=== PATIENT | male | born 1990 | race Caucasian/White ===

== ENCOUNTER 2022-11-28 17:41 | Outpatient (CLI) | payer OTHER ==
--- NOTE | 2022-11-29 01:56 | MRI Report ---
PROCEDURE: LUMBAR SPINE WO INDICATIONS: ANKYLOSING SPONDYLITIS TECHNIQUE: Noncontrast sagittal T1 spin echo and T2 fast echo, sagittal STIR, axial T1 and T2 fast spin echo thr ough the lumbar spine. In cases with scoliosis, additional coronal T2 fast spin echo may be performe d. COMPARISON: None. FINDINGS: Image quality: Motion artifact is noted. Alignment and Curvature: There is normal bony alignment. Bone Marrow: Marrow is of normal overall signal. No acute vertebral body compression fractures. Spinal Cord: Conus medullaris terminates at the T12-L1 level. Visualized cord demonstrates normal s ignal and size. Paraspinous Soft Tissues: No paravertebral masses. T12-L1: Normal in appearance. L1-L2: Normal in appearance. L2-L3: Normal in appearance. L3-L4: Normal in appearance. L4-L5: The disc height is well-preserved. There is loss of disc signal seen. Mild disc bulge is see n, with a central disc protrusion. Note is made of an annular fissure posteriorly. Mild facet hypert rophy is seen. Moderate bilateral neural foraminal narrowing is seen. Minimal central canal narrowin g is seen. L5-S1: Moderate loss of disc height and signal are seen. Moderate disc bulge is seen, with a cent ral disc extrusion, with inferior migration of the disc material. Moderate facet hypertrophy is seen . Moderate bilateral neural foraminal narrowing is seen. Moderate central canal narrowing is seen. Mass effect can be seen upon the transiting S1 nerve roots, left worse than right. IMPRESSION: There is a significant central disc extrusion seen at the L5-S1 level. Spinal surgery consultation is recommended. Reviewed by: Ross Tyson MD on 11/29/2022 12:55 AM KATINA Approved by: Ross Tyson MD on 11/29/2022 12:55 AM KATINA Station ID: [id number]
== END 2022-11-28 17:42 | disposition home or self-care (01) ==
LOC: DI 17:41
PROVIDERS: ATTEND Student in an Organized Health Care Education/Training Program
DX: M45.8 Ankylosing spondylitis sacral and sacrococcygeal region (principal); M51.27 Other intervertebral disc displacement, lumbosacral region

== ENCOUNTER 2023-08-09 08:18 | Emergency (ER) | payer OTHER ==
[2023-08-09] MEDS: ONDANSETRON 4 MG/2 ML VIAL IVP STA (08:51)
[2023-08-09] MEDS: SODIUM CHLORIDE 0.9% 1,000 ML IV STA (08:51)
[2023-08-09 08:55] LABS: BASOPHILS % (AUTO) 0.2 %; EOSINOPHILS % (AUTO) 0.8 %; HCT - HEMATOCRIT 45.5 % (42.0-52.0); HGB - HEMOGLOBIN 15.4 g/dL (14.0-18.0); LYMPHOCYTES # (AUTO) 1.1 10^3/uL (1.5-3.5); LYMPHOCYTES % (AUTO) 21.4 %; MEAN CORPUSCULAR HEMOGLOBIN 29.2 pg (27.0-31.0); MEAN CORPUSCULAR HGB CONC 33.8 g/dL (32.0-36.0); MEAN CORPUSCULAR VOLUME 86.3 fL (80.0-94.0); MEAN PLATELET VOLUME 8.9 fL (7.4-11.4); MONOCYTES # (AUTO) 0.6 10^3/uL (0.0-1.0); MONOCYTES % (AUTO) 11.3 %; NEUTROPHILS # (AUTO) 3.3 10^3/uL (1.5-6.6); NEUTROPHILS % (AUTO) 66.1 %; PLT - PLATELET COUNT 185 10^3/uL (130-450); RED BLOOD COUNT 5.27 10^6/uL (4.70-6.10); RED CELL DISTRIBUTION WIDTH 11.8 % (12.0-15.0); WHITE BLOOD COUNT 5.1 x10^3/uL (4.8-10.8)
[2023-08-09 09:18] LABS: ALBUMIN 4.7 g/dL (3.2-5.5); ALBUMIN/GLOBULIN RATIO 1.9 (1.0-2.2); BILIRUBIN,TOTAL 0.6 mg/dL (0.2-1.0); CALCIUM 9.3 mg/dL (8.5-10.3); CREATININE 0.9 mg/dL (0.6-1.3); POTASSIUM 3.3 mmol/L (3.5-4.5); TOTAL PROTEIN 7.2 g/dL (6.4-8.9)
[2023-08-09] MEDS: POTASSIUM BICARB 25 MEQ TABLET PO ONE (09:59)
[2023-08-09 10:23] VITALS: BP 126/78; O2SAT 100
--- NOTE | 2023-08-09 10:37 | ED Physician Documentation ---
PD HPI NVD - Stated complaint Stated Complaint: SERRANO/N/D/V - Chief complaint Chief Complaint: Abd Pain - History obtained from History obtained from: Patient - Additonal information Additional information: Patient is a 33-year-old male presenting for evaluation of diarrhea since Thursday along with feeling nauseous. Patient states that he has had numerous loose stools that are watery in nature over the past several days. His symptoms did improve on but then the diarrhea started again on Thursday. He has had ongoing nausea but able to tolerate p.o. intake and has been pushing Gatorade and Pedialyte. Denies other family members that are ill with similar symptoms. No fever. Has had a headache but that has resolved since yesterday with the use of [id number] medications. No cough, chest pain, difficulty breathing. No abdominal pain. Denies dysuria. No blood in stools. Denies recent travel, antibiotic use. Review of Systems Constitutional: denies: Fever Cardiac: denies: Chest pain / pressure Respiratory: denies: Dyspnea GI: reports: Nausea, Diarrhea. denies: Abdominal Pain, Vomiting, Bloody / black stool : denies: Dysuria Neurologic: reports: Headache (Resolved) PD PAST MEDICAL HISTORY - Past Medical History Past Medical History: No - Past Surgical History Past Surgical History: No - Present Medications Home Medications: Ambulatory Orders Medication Instructions Recorded Confirmed Ondansetron Odt [Zofran] 4 mg TL Q6H PRN #10 tablet 08/09/23 - Allergies Allergies/Adverse Reactions: Allergies Allergy/AdvReac Type Severity Reaction Status Date / Time amoxicillin Allergy Hives Verified 08/09/23 08:38 naproxen [From Aleve] Allergy Hives Verified 08/09/23 08:38 - Social History Does the pt smoke?: No Smoking Status: Never smoker Does the pt drink ETOH?: Yes Does the pt have substance abuse?: No - Immunizations Immunizations are current?: Yes - POLST Patient has POLST: No PD ED PE NORMAL - General General: Alert and oriented X 3, No acute distress, Well developed/nourished - HEENT HEENT: Atraumatic, Moist mucous membranes, Pharynx benign - Neck Neck: Supple, no meningeal sign - Cardiac Cardiac: RRR, Strong equal pulses - Respiratory Respiratory: No respiratory distress, Clear bilaterally - Abdomen Abdomen: Normal bowel sounds, Soft, Non tender, Non distended - Derm Derm: Warm and dry - Neuro Neuro: Alert and oriented X 3, No motor deficit, No sensory deficit, Normal speech, Other (Normal gait) Results - Vitals Vitals: Vital Signs - 24 hr 08/09/23 08/09/23 08:32 10:21 Temperature 36.5 C 36.3 C L Heart Rate 77 76 Respiratory 20 18 Rate Blood Pressure 136/85 H 126/78 O2 Saturation 99 100 Oxygen O2 Source Room air - Labs Labs: Laboratory Tests 08/09/23 08/09/23 08/09/23 08:45 08:45 09:30 WBC 5.1 RBC 5.27 Hgb 15.4 Hct 45.5 MCV 86.3 MCH 29.2 MCHC 33.8 RDW 11.8 L Plt Count 185 MPV 8.9 Neut # (Auto) 3.3 Lymph # (Auto) 1.1 L Arthur # (Auto) 0.6 Eos # (Auto) 0.0 Baso # (Auto) 0.0 Absolute Nucleated RBC 0.00 Nucleated RBC % 0.0 Sodium 139 Potassium 3.3 L Chloride 106 Carbon Dioxide 25 Anion Gap 8.0 BUN 8 Creatinine 0.9 Estimated GFR (MDRD) 98 Glucose 92 Calcium 9.3 Total Bilirubin 0.6 AST 21 ALT 29 Alkaline Phosphatase 40 L Total Protein 7.2 Albumin 4.7 Globulin 2.5 Albumin/Globulin Ratio 1.9 Lipase 17 Stl C. diff Tox B Gene NEGATIVE PD Medical Decision Making - ED course Complexity details: reviewed results, re-evaluated patient, d/w patient ED course: Patient presenting for evaluation of diarrhea for the past several days with nausea. Vital signs are stable. Abdominal exam is benign. Labs including CBC, chemistries, stool culture and C. difficile were sent. Patient has mild hypokalemia of 3.3. He is feeling better here after IV fluids and Zofran and tolerating p.o. intake. He is ambulatory here. Has had 2 loose stools which we sent for testing. C. difficile testing is negative. Patient was given a dose of Imodium. Counseled on continued supportive care as well as concerning symptoms to return for. Departure - Departure Disposition: 01 Home, Self Care Clinical Impression: Diarrhea, Nausea alone, Hypokalemia Condition: Stable Instructions: ED Diet Vomiting Diarrhea Prescriptions: Ondansetron Odt [Zofran] 4 mg TL Q6H PRN #10 tablet PRN Reason: Nausea / Vomiting Comments: Your testing today shows that your potassium level is slightly low and we have given you potassium replacement for this. I have sent in prescription for an antinausea medication to [facility] in [place]. Your stool testing is still pending and we will notify you of any abnormal results. I have given you a dose of an antidiarrhea medication called Imodium which may be helpful for you if you continue to have diarrhea. Return to the emergency department with any worsening symptoms such as abdominal pain, bloody diarrhea or any other concerns. Forms: PCP List Discharge Date/Time: 08/09/23 10:47
[2023-08-09] MEDS: LOPERAMIDE 2 MG CAPSULE PO STA (10:43)
== END 2023-08-09 10:47 | disposition home or self-care (01) ==
LOC: ED 08:18
DX: R11.0 Nausea (principal); E87.6 Hypokalemia; R19.7 Diarrhea, unspecified
CPT/HCPCS: 36415; 80053; 83690; 85025; 87045; 87046; 87427; 87493; 96361; 96374; 99283; 99284; A9270

== ENCOUNTER 2023-11-19 08:09 | Emergency (ER) | payer OTHER ==
--- NOTE | 2023-11-19 10:13 | ED Physician Documentation ---
PD HPI HEENT - Stated complaint Stated Complaint: SWOLLEN FACE,UNWELL - Chief complaint Chief Complaint: Heent - History obtained from History obtained from: Patient - Additional information Additional information: The patient comes to the emergency department chief complaint of pain and redness in his left face. He states his symptoms were preceded by what seemed to be either a sinus infection or cold. This started a couple of weeks ago and seem to be getting better when the current symptoms started. He went to the walk-in clinic and states that there, he was diagnosed with possible adenopathy and started on doxycycline for this. He states that he feels as though the pain is actually centered one of his left maxillary teeth and he has been feeling through his face and alevism and also has noticed some mild redness on his face. He denies any pain with chewing but has noticed what appears to be a pimple over his gingiva that overlies the tooth in question. Patient denies any other com plaints at this time. No fevers. No general feeling of unwellness. He is allergic to penicillins. He is otherwise healthy. PD PAST MEDICAL HISTORY - Past Medical History Past Medical History: Yes - Past Surgical History Past Surgical History: No - Present Medications Home Medications: Ambulatory Orders Medication Instructions Recorded Confirmed Cefdinir 300 mg PO BID #20 cap 11/19/23 Doxycycline Hyclate 100 mg PO BID 11/19/23 11/19/23 Multivitamin 1 each PO DAILY PM 11/19/23 11/19/23 metroNIDAZOLE [Flagyl] 500 mg PO BID 7 Days #14 tablet 11/19/23 - Allergies Allergies/Adverse Reactions: Allergies Allergy/AdvReac Type Severity Reaction Status Date / Time amoxicillin Allergy Hives Verified 11/19/23 08:31 naproxen [From Aleve] Allergy Hives Verified 11/19/23 08:31 - Social History Does the pt smoke?: No Smoking Status: Never smoker Does the pt drink ETOH?: Yes Does the pt have substance abuse?: No - Immunizations Immunizations are current?: Yes - POLST Patient has POLST: No PD ED PE NORMAL - Vitals Vital signs reviewed: Yes - General General: Alert and oriented X 3, No acute distress - HEENT HEENT: Atraumatic, EOMI, Moist mucous membranes, Dentition benign (No dental tenderness, fracture, or decay that is evident grossly. Moderate gingival tenderness superior to left maxillary canine. A pustule is noted in the same area with some hyperemia of the mucosa. Mild edema. No induration, fluctuance, or drainage.), Other (Very mild left facial edema with very mild erythema involving the anterior maxillary area, extending to just inferior to the eye. Mild tenderness throughout that region and around to the alevism. No mass, induration, or fluctuance.) - Neck Neck: Supple, no meningeal sign, No adenopathy - Respiratory Respiratory: No respiratory distress - Derm Derm: Warm and dry - Extremities Extremities: No deformity - Neuro Neuro: Alert and oriented X 3 - Psych Psych: Normal mood, Normal affect Results - Vitals Vitals: Oxygen O2 Source Room air PD Medical Decision Making - ED course Complexity details: considered differential, d/w patient ED course: I discussed with the patient that given the slight swelling and erythema, as well as the lesion on his gingiva, I am concerned for an oral if not dental source of cellulitis. The doxycycline the patient was started on is not going to be adequate coverage, based on expected resistance patterns, and the patient is allergic to amoxicillin. After review of cross-reactivity, I felt that the patient could be started on Omnicef and Flagyl, instead. I have sent a prescription for these medications to the pharmacy of the patient's choice. We have discussed that if in spite of antibiotics the patient's symptoms seem to be notably worsening, he should return for reevaluation. Otherwise, he should plan to follow-up with a dentist to soon as possible for dental evaluation. Patient is agreeable to the plan. Departure - Departure Disposition: 01 Home, Self Care Clinical Impression: Facial cellulitis Condition: Stable Instructions: ED Cellulitis Facial Prescriptions: Cefdinir 300 mg PO BID #20 cap metroNIDAZOLE [Flagyl] 500 mg PO BID 7 Days #14 tablet Comments: You do have some increased intensity of coloration on your left face as well as a small pustule over your gum on that side. You do not have any dental tenderness but it is possible that the inflammation is coming from your tooth. Because of the redness on your face and the findings inside of your mouth, we will treat you not only for the skin infection but for the possibility of dental infection. As we discussed, we will put you on 2 antibiotics that are more appropriate for this sort of infection than the doxycycline, and considering the skin findings. The prescription for these has been electronically transmitted to the pharmacy and [place]. Please pick them up today and begin taking them. You may stop taking the doxycycline. Please schedule a follow-up appoint with your dentist for within the next week, just in case you do not feel that your symptoms are improving. If you begin to develop high fevers or any swelling in your mouth or throat, or if you are face begins to swell and become intensely red despite being on the antibiotics, please return to the emergency department immediately. Forms: PCP List Discharge Date/Time: 11/19/23 10:27
[2023-11-19 10:32] VITALS: BP 121/74; O2SAT 100
== END 2023-11-19 10:27 | disposition home or self-care (01) ==
LOC: ED 08:09
DX: L03.211 Cellulitis of face (principal); Z79.899 Other long term (current) drug therapy
CPT/HCPCS: 99282; 99283